=== PATIENT | female | born 1960 ===

== ENCOUNTER 2018-06-27 00:32 | Emergency (ER) | payer MEDICAID ==
[2018-06-27 00:33] VITALS: BMI 28.1
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
[2018-06-27 01:28] LABS: BASO % 0.7 % (0.0-2.0); EOS # 0.1 K/uL (0.0-0.7); EOS % 2.1 % (0.0-4.0); HEMOGLOBIN 11.1 g/dL (11.0-16.0); MEAN CELL VOLUME 88.9 fL (81.0-99.0); MEAN CORPUSCULAR HEMOGLOBIN 29.6 pg (27.0-31.0); MEAN CORPUSCULAR HGB CONC 33.3 g/dL (33.0-37.0); MEAN PLATELET VOLUME 8.8 fL (7.2-11.7); MONO # 0.7 K/uL (0.0-0.8); MONO % 11.9 % (0.0-10.0); NEUT # 2.9 K/uL (1.8-7.0); NEUT % 50.3 % (50.0-75.0); NRBC % 0.1 % (0.0-2.0); RBC 3.74 Mil/uL (3.80-5.20); RED CELL DISTRIBUTION WIDTH 13.1 % (11.5-14.5); WHITE BLOOD COUNT 5.7 K/uL (4.8-10.8)
[2018-06-27 01:52] LABS: ALB/GLOB RATIO 1.4 (1.0-2.1); ALBUMIN 4.3 g/dL (3.5-5.0); ALT/SGPT 22 U/L (9-52); AST/SGOT 28 U/L (14-36); BLOOD UREA NITROGEN 19 mg/dL (7-17); CALCIUM 9.7 mg/dl (8.6-10.4); GFR NON-AFRICAN AMERICAN > 60
[2018-06-27 03:46] LABS: BARBITURATES, UR NEGATIVE (NEGATIVE); BENZODIAZEPINES, UR NEGATIVE (NEGATIVE); OPIATES, UR NEGATIVE (NEGATIVE); PHENCYCLIDINE, UR NEGATIVE (NEGATIVE)
[2018-06-27 03:47] LABS: SQUAMOUS EPITHIAL < 1 /hpf (0-5); URINE BILIRUBIN NEGATIVE (NEGATIVE); URINE BLOOD 1+ (NEGATIVE); URINE CLARITY Clear (Clear); URINE COLOR Colorless (YELLOW); URINE GLUCOSE (UA) NORMAL (Normal); URINE LEUKOCYTE ESTERASE 1+ Leu/uL (Negative); URINE PROTEIN NEGATIVE (NEGATIVE); URINE UROBILINOGEN NORMAL mg/dL (0.2-1.0)
--- NOTE | 2018-06-27 08:21 | RAD ---
Date of service: 06/27/2018 HISTORY: [place] [facility] [place]: 06/06/2013 FINDINGS: LUNGS: Shallow lung volumes. The vague opacity over the inferolateral left hemithorax may be due to summation of soft tissues/breast-appearance is similar to 2012. PLEURA: No significant pleural effusion identified, no pneumothorax apparent. CARDIOVASCULAR: No aortic atherosclerotic calcification present. Borderline cardiomegaly no pulmonary vascular congestion. OSSEOUS STRUCTURES: No significant abnormalities. VISUALIZED UPPER ABDOMEN: Normal. OTHER FINDINGS: None. IMPRESSION: No interval pathology noted.
--- NOTE | 2018-06-27 11:39 | PCM.PSYCH ---
Initial Psychiatric Evaluation - Initial Psychiatric Evaluation Type of Admission: Involuntary Chief Complaint (in patient's own words): None Seen as a consult History of Present Illness and Precipitating Events: FULL NOTE TO FOLLOW She is being screened by [facility], likely to be transferred as she is very disorganized, psychotic Past Psychiatric History - Past Psychiatric History Pertinent Medical Hx (Current Medical&Sleep Prob, Allergies): Allergies Allergy/AdvReac Type Severity Reaction Status Date / Time No Known Allergies Allergy Unverified 12/30/12 21:16 Januvia 50 mg PO DAILY 06/06/13 Lisinopril 2.5 mg PO DAILY 06/06/13 Talco 300 mg PO BID 06/06/13 Pantoprazole 40 mg PO DAILY 06/06/13 Risperdal 4 mg PO HS 06/06/13 Simvastatin 20 mg PO DAILY 06/06/13 Vitamin D 5,000 iu PO QWK 06/06/13 Gemfibrozil [Lopid] 600 mg PO DAILY 12/05/13 Escitalopram 06/27/18
[2018-06-28 13:28] VITALS: TEMP 98; O2SAT 98
[2018-06-28 14:27] VITALS: BP 126/73; PULSE 78; RESP 18
--- NOTE | 2018-06-28 21:30 | CARD ---
APPROVED REPORT Date of service: 06/27/2018 EKG Measurement Heart [id number] <Conclusion> Normal sinus rhythm Left axis deviation Voltage criteria for left ventricular hypertrophy Prolonged QT Abnormal ECG
== END 2018-06-28 14:27 | disposition short-term general hospital (02) ==
LOC: C.ER 00:32
DX: F31.9 Bipolar disorder, unspecified (principal); F41.9 Anxiety disorder, unspecified; F20.9 Schizophrenia, unspecified; I10 Essential (primary) hypertension; E11.9 Type 2 diabetes mellitus without complications
CPT/HCPCS: 71045; 80053; 80320; 80324; 80345; 80346; 80349; 80353; 80358; 80361; 81001; 82948; 83735; 83992; 84100; 84703; 85025; 93005; 96372; 99285; J2060; J3486